=== PATIENT | male | born 1960 | race African-American/Black ===

== ENCOUNTER 2017-10-07 13:56 | Emergency (ER) | payer SELFPAY ==
[~2017-10-07] VITALS: Ht 172.7 cm; Wt 82.0 kg
[2017-10-07 14:45] LABS: CHLORIDE 105 mEq/L (98-107)
[2017-10-07 14:49] LABS: EOSINOPHILS % 2.3 % (0.0-5.0); HEMATOCRIT. 42.7 % (42.0-52.0); HEMOGLOBIN. 14.5 g/dL (14.0-18.0); LYMPHOCYTES % 27.4 % (20.0-50.0); MEAN CORPUSCULAR HEMOGLOBIN 31.9 pg (28.0-32.0); MEAN CORPUSCULAR VOLUME 94.2 fL (80.0-94.0); MEAN PLATELET VOLUME 6.7 fl (7.4-10.4); MONOCYTES % 8.1 % (2.0-8.0); NEUTROPHILS % 61.2 % (40.0-76.0); PLATELET 387 x1000/uL (130-400); PROTHROMBIN TIME 10.5 sec (9.4-11.6); RED BLOOD CELL COUNT 4.54 mill/uL (4.7-6.1); RED CELL DISTRIBUTION WIDTH 13.4 % (11.6-14.6)
[2017-10-07 17:57] VITALS: BP 168/102
== END 2017-10-07 17:59 | disposition home or self-care (01) ==
LOC: ER 14:31
DX: R07.9 Chest pain, unspecified (principal); K85.90 Acute pancreatitis without necrosis or infection, unspecified
CPT/HCPCS: 36415; 71045; 80053; 83690; 84484; 85025; 85610; 85730; 93005; 99285